=== PATIENT | male | born 1945 | race Caucasian/White ===

== ENCOUNTER 2020-11-23 08:02 | Day surgery (SDC) | payer MEDICARE ==
[~2020-11-23] VITALS: Ht 167.6 cm; Wt 85.7 kg
[2020-11-23 08:42] VITALS: BP 143/80
[2020-11-23] MEDS ORDERED: CEFAZOLIN PMX 1GM/50ML 50 ML ONE (08:56)
[2020-11-23] MEDS ORDERED: CEFAZOLIN PMX 1GM/50ML 50 ML IV ONE (09:00)
[2020-11-23] MEDS ORDERED: PLEASE ENTER ALLERGIES MC SCH (09:00)
[2020-11-23] MEDS ORDERED: FLUMAZENIL 0.1 MG/1 ML, 5ML ONE (10:47)
[2020-11-23] MEDS ORDERED: FENTANYL PF 100 MCG/2ML ONE (10:47)
[2020-11-23] MEDS ORDERED: NALOXONE 1 MG/ML, 2ML ONE (10:47)
[2020-11-23] MEDS ORDERED: MIDAZOLAM 1 MG/ML, 5ML ONE (10:47)
[2020-11-23] MEDS ORDERED: LIDOCAINE 1%, 20ML ONE (10:48)
[2020-11-23] MEDS ORDERED: LIDOCAINE 1%, 10ML ONE (10:48)
== END 2020-11-23 13:30 | disposition home or self-care (01) ==
LOC: OUT 08:02
PROVIDERS: ATTEND Pathology Hematology
DX: C83.39 Diffuse large B-cell lymphoma, extranodal and solid organ sites (principal); I10 Essential (primary) hypertension; J44.9 Chronic obstructive pulmonary disease, unspecified; E78.5 Hyperlipidemia, unspecified; D64.9 Anemia, unspecified; D61.818 Other pancytopenia; Z79.899 Other long term (current) drug therapy; Z85.46 Personal history of malignant neoplasm of prostate; Z87.891 Personal history of nicotine dependence; Z90.79 Acquired absence of other genital organ(s); Z98.890 Other specified postprocedural states; Z99.81 Dependence on supplemental oxygen; Z80.3 Family history of malignant neoplasm of breast; Z82.49 Family history of ischemic heart disease and other diseases of the circulatory system; Z82.3 Family history of stroke
CPT/HCPCS: 36561; 76937; 77001; 99156; 99157; C1788; C1894; J0690; J1642; J2250; J3010; J2310

== ENCOUNTER 2021-03-04 19:01 | Inpatient (IN) | payer MEDICARE ==
[~2021-03-04] VITALS: Ht 170.2 cm; Wt 83.6 kg
[2021-03-09 12:09] VITALS: BP 167/87
== END 2021-03-09 16:27 | disposition home health service (06) | DRG 64 ==
LOC: ED 20:13 → EDIP 21:58 → 4EST 23:36
PROVIDERS: ADMIT Internal Medicine; ATTEND Internal Medicine
DX: I63.9 Cerebral infarction, unspecified (principal); I21.A1 Myocardial infarction type 2; C78.6 Secondary malignant neoplasm of retroperitoneum and peritoneum; M33.20 Polymyositis, organ involvement unspecified; C83.30 Diffuse large B-cell lymphoma, unspecified site; G91.1 Obstructive hydrocephalus; C78.7 Secondary malignant neoplasm of liver and intrahepatic bile duct; R26.2 Difficulty in walking, not elsewhere classified; R47.1 Dysarthria and anarthria; Z66 Do not resuscitate; Z51.5 Encounter for palliative care; M10.9 Gout, unspecified; J84.89 Other specified interstitial pulmonary diseases; R22.2 Localized swelling, mass and lump, trunk; R13.10 Dysphagia, unspecified; Z80.3 Family history of malignant neoplasm of breast; Z85.46 Personal history of malignant neoplasm of prostate; Z79.52 Long term (current) use of systemic steroids; Z86.73 Personal history of transient ischemic attack (TIA), and cerebral infarction without residual deficits; Z90.79 Acquired absence of other genital organ(s); Z99.81 Dependence on supplemental oxygen